=== PATIENT | male | born 1990 | race Two or more races ===

== ENCOUNTER 2019-03-09 06:30 | Emergency (ER) | payer OTHER ==
[~2019-03-09] VITALS: Ht 175.3 cm; Wt 86.4 kg
[2019-03-09 06:35] VITALS: Ht 175.3 cm; Wt 86.4 kg
[2019-03-09 07:32] LABS: BASOPHIL % 0.5 % (0-2); PLATELET COUNT 284 x10^3mcL (130-400); RED CELL DISTRIBUTION WIDTH 13.3 % (11.5-14.5)
[2019-03-09 07:40] LABS: CALCIUM 9.1 mg/dL (8.5-10.1); CHLORIDE SERUM 103 mmol/L (98-107); CREATININE SERUM 1.2 mg/dL (0.7-1.3); GFR1 > 60 mL/min; GLUCOSE SERUM 152 mg/dL (74-106); POTASSIUM SERUM 3.3 mmol/L (3.5-5.1); SODIUM SERUM 140 mmol/L (136-145)
[2019-03-09 07:45] LABS: ALKALINE PHOSPHATASE 62 U/L (46-116); ALT/SGPT 60 U/L (16-63); AST/SGOT 13 U/L (15-37); BILIRUBIN TOTAL 0.2 mg/dL (0.20-1.00); TOTAL PROTEIN, SERUM 7.7 g/dL (6.4-8.2); URIC ACID 6.1 mg/dL (3.5-7.2)
[2019-03-09 11:38] VITALS: BP 134/66
== END 2019-03-09 11:38 | disposition home or self-care (01) ==
LOC: ED 06:30
PROVIDERS: Emergency Medicine
DX: N23 Unspecified renal colic (principal); E86.0 Dehydration; F17.210 Nicotine dependence, cigarettes, uncomplicated
CPT/HCPCS: 99406; J1885; J2270; J2405; J7030